=== PATIENT | male | born 1985 | race Caucasian/White ===

== ENCOUNTER 2017-01-20 03:11 | Emergency (ER) | payer SELFPAY ==
[~2017-01-20] VITALS: Ht 170.2 cm; Wt 65.0 kg
[~2017-01-20 03:11] MED LIST: BACTRIM DS1 TAB PO; CEPHALEXIN500 MG PO; KEFLEX500 MG PO; NAPROSYN500 MG PO; ULTRAM50 M1 PO; ZOFRAN ODT4 MG OR
[2017-01-20 03:59] LABS: ALBUMIN 4.5 g/dL (3.2-5.0); ALKALINE PHOSPHATASE 73 u/l (38-126); ANION GAP 18 (6-22 (CALC)); BILIRUBIN, TOTAL 1.4 mg/dL (0.0-1.4); BUN 17 mg/dL (9-20); BUN/CREATININE RATIO 19 (12-20 (CALC)); CALCIUM 8.8 mg/dL (8.4-10.2); CARBON DIOXIDE 24 mmol/l (22-30); CHLORIDE 103 mmol/l (95-108); CREATININE 0.9 mg/dL (0.7-1.3); GFR > 60 ML/MIN (>=60 (CALC)); GFR FOR AFR.AMER. > 60 ML/MIN (>=60 (CALC)); GLUCOSE 96 mg/dL (75-110); POTASSIUM 3.3 mmol/l (3.5-5.1); SGOT/AST 25 u/l (17-59); SGPT/ALT 32 u/l (21-72); SODIUM 141 mmol/l (137-146); TOTAL PROTEIN 7.4 g/dL (6.3-8.2)
[2017-01-20 04:00] LABS: HEMATOCRIT 41.3 % (39.0-50.0); HEMOGLOBIN 14.4 g/dl (14.0-18.0); IMMATURE GRANULOCYTES 0.3 % (0.0-1.0); MEAN CELL VOLUME 87.3 fL CALC (80.0-100.0); MEAN CORPUSCULAR HGB 30.4 pG CALC (26.0-32.0); MEAN CORPUSCULAR HGB CONC 34.9 g/L CALC (32.0-36.0); NEUT# 8.21 thou/uL (1.82-7.42); RED BLOOD COUNT 4.73 mill/uL (4.70-6.10); RED CELL DISTRI WIDTH 12.1 % (11.5-15.5)
[2017-01-20] MEDS ORDERED: AMOXICILLIN500 MG PO (04:15)
[2017-01-20] MEDS ORDERED: NAPROSYN500 MG PO (04:15)
[2017-01-20 04:20] VITALS: BP 129/83
== END 2017-01-20 04:25 | DRG 159 ==
LOC: ED 03:11
PROVIDERS: Emergency Medicine
DX: K04.7 Periapical abscess without sinus (principal)

== ENCOUNTER 2019-12-25 17:45 | Inpatient (IN) | payer SELFPAY ==
[~2019-12-25] VITALS: Ht 167.6 cm; Wt 70.2 kg
[~2019-12-25 17:45] MED LIST changes: +AMOXICILLIN500 MG PO
--- NOTE | 2019-12-25 18:14 | NUR ---
PATIENT AMBULATED TO ROOM WITH STEADY GAIT AND PRACTIONER AT BEDSIDE FOR EVAL
[2019-12-25 18:44] LABS: HEMOGLOBIN 16.1 g/dl (14.0-18.0); MEAN CELL VOLUME 84.3 fL CALC (80.0-100.0); MEAN CORPUSCULAR HGB 28.1 pG CALC (26.0-32.0); MEAN CORPUSCULAR HGB CONC 33.3 g/dL CAL (32.0-36.0); PLATELET COUNT 292 thou/uL (130-400); RED BLOOD COUNT 5.73 mill/uL (4.70-6.10); RED CELL DISTRI WIDTH 13.5 % (11.5-15.5)
[2019-12-25 19:01] LABS: HEMATOCRIT 48.3 % (39.0-50.0); MANUAL DIFFERENTIAL YES
[2019-12-25 19:02] LABS: ALBUMIN 4.4 g/dL (3.2-5.0); BILIRUBIN, TOTAL 1.4 mg/dL (0.0-1.4); BUN 12 mg/dL (9-20); BUN/CREATININE RATIO 13 (12-20 (CALC)); CARBON DIOXIDE 28 mmol/l (22-30); GFR > 60 ML/MIN (>=60 (CALC)); GFR FOR AFR.AMER. > 60 ML/MIN (>=60 (CALC)); SGOT/AST 19 u/l (17-59); TOTAL PROTEIN 7.5 g/dL (6.3-8.2)
[2019-12-25 19:04] LABS: BAND 9 % (0-8)
[2019-12-25 19:10] LABS: ALKALINE PHOSPHATASE 116 u/l (38-126); ANION GAP 15 (6-22 (CALC)); CHLORIDE 88 mmol/l (95-108); POTASSIUM 4.2 mmol/l (3.5-5.1); SODIUM 127 mmol/l (137-146)
--- NOTE | 2019-12-25 19:30 | NUR ---
PT IS C/O BEING COLD. TEMP 100.6. SUPERINTENDENT [employer]ATING [employer] NOTIFIED.
[2019-12-25 19:52] LABS: URINE BILIRUBIN - DIPSTICK NEGATIVE (NEGATIVE); URINE BLOOD DIPSTICK TRACE-INTACT (NEGATIVE); URINE COLOR YELLOW; URINE GLUCOSE - DIPSTICK NEGATIVE (NEGATIVE); URINE KETONE NEGATIVE (NEGATIVE); URINE LEUK ESTERASE NEGATIVE (NEGATIVE); URINE NITRITE - DIPSTICK NEGATIVE (Negative); URINE PROTEIN - DIPSTICK NEGATIVE (NEG-TRACE)
--- NOTE | 2019-12-25 21:53 | NUR ---
REPORT CALLED TO [facility].
--- NOTE | 2019-12-25 22:00 | NUR ---
MICHELLE COMPLETED. PT TO FLOOR VIA STRETCHER. NAD. ABMULATORY TO BED. ADVISED VISITOR OF NO VISITORS IN HOUSE DO TO COVID. PT AMBULATORY TO BED UPON ARRIVAL.
[2019-12-25 22:05] VITALS: BP 114/79
--- NOTE | 2019-12-25 22:05 | NUR ---
RECEIVED REPORT FROM NURSE MOREIRA, PATIENT TRANSPORTED VIA BED, AMBULATED WITH STEADY GAIT BUT SLOW R/T PAIN ON AXILLA, ORIENTED TO ROOM AND CALL LIGHT SYSTEM.
--- NOTE | 2019-12-25 22:30 | NUR ---
ADMISSION ASSEST DONE, PATIENT HAS AN ONGOING IV NS @ 100CC/HR INFUSING WELL ON RAC, LBM 12/23, LEFT AXILLA APPEARS SWOLLEN AND RED, INTACT SKIN, CALL LIGHT AT REACH.
--- NOTE | 2019-12-26 02:31 | NUR ---
PATIENT RESTING IN BED EYES CLOSED, IV INFUSING WELL ON RAC, BREATHING EVEN AND UNLABORED CALL LIGHT AT REACH.
[2019-12-26 04:00] VITALS: BP 107/72
--- NOTE | 2019-12-26 04:53 | NUR ---
PATIENT RESTING IN BED WITH EYES CLOSED, BREATHING EVEN AND UNLABORED, CALL LIGHT AT REACH.
--- NOTE | 2019-12-26 07:27 | NUR ---
CALLED OR TO LEAVE A MESSAGE FOR DR TRIANA ABOUT CONSULT
--- NOTE | 2019-12-26 08:40 | NUR ---
ASSESSMENT IS COMPLTED: IV SITE IS FREE FROM REDNESS OR EDEMA. HR IS REG,PULSES ARE STRONG X4, ABD IS SOFT WITH ACTIVE BS. BREATH SOUNDS ARE CLEAR,BILATERALLY, LEFT AXILLA HAS SMALL DRAINAGE NOTED. CONTINUE TO OSBERVE AND MONITOR.
--- NOTE | 2019-12-26 11:30 | NUR ---
WARM COMPRESS GIVEN TO PT TO PLACE UNDER THE LEFT ARM.
--- NOTE | 2019-12-26 12:50 | NUR ---
PT IS RELAXING IN BED WITH NO DISTRESS NOTED. IV SITE IS FREE FROM REDNESS OR EDEMA.
--- NOTE | 2019-12-26 13:03 | NUR ---
S: DAMARI SAMSON is a 34 M who presents with cellulitis. He has a history of polysubstance abuse. All medications in patient's chart were reviewed. O: VS: BP 107/72 mmHg, P 88 bpm, RR 16 breaths/min, T 97.7 F W 70.193 kg, HT 167.64 cm, Scr= 1 mg/dL, CrCl= 103.4 ml/min A: Blood culture is pending. Wound culture is pending. P: Patient is on zosyn 3.375gm IV Q6H. Vancomycin ordered for pharmacy to dose. Start Vancomycin 1250mg IV Q12H. Vancomycin trough is drawn before the 4th dose on 12/27/2019 2130. Vancomycin goal trough is between 10-15 mcg/ml. Pharmacy will follow and or advise on antibiotics use as needed.
[2019-12-26 15:00] VITALS: BP 109/64
--- NOTE | 2019-12-26 16:50 | NUR ---
PT IS RELAXING IN BED AND NO DISTRESS NOTED. IV SITE IS FREE FROM REDNESS OR EDEMA.
--- NOTE | 2019-12-26 18:20 | NUR ---
PT TOOK A SHOWER. AND THEN GAVE PAIN MEDICATION.
--- NOTE | 2019-12-26 19:00 | NUR ---
RECEIVED REPORT FROM NURSE BARBOSA PATIENT AWAKE AT THIS TIME, WATCHING TV, C/O PAIN ON LEFT AXILLA BUT REFUSED TO TAKE PAIN MEDICATION YET AT THIS TIME, WARM COMPRESS APPLIED TO SITE PER ORDER.
[2019-12-26 19:45] VITALS: BP 99/63
--- NOTE | 2019-12-26 21:00 | NUR ---
PATIENT ALERT ORINETED ABLE TO MAKE NEEDS KNOWN, LBM 12/25, CONSENT FOR OR SECURED, ONGOING IV NORMAL SALINE @ 100CC/HR INFUSING WELL ON RAC, MAINTAINED ON CONTACT PRECAUTION FOR MRSA, REINFORCED NPO DIET AFTER MIDNIGHT.
[2019-12-27] VITALS (11 sets, daily range): BP systolic 95–118; BP diastolic 64–76
--- NOTE | 2019-12-27 00:56 | NUR ---
PATIENT RESTING IN BED REINFORCED ON NPO DIET VERBALIZED UNDERSTANDING, RESPIRATION EVEN AND UNLABORED CALL LIGHT AT REACH.
--- NOTE | 2019-12-27 04:58 | NUR ---
PATIENT REMAIMS ON NPO, RESTING IN BED WITH EYES CLOSE, RESPIRATION UNLABORED CALL LIGHT AT REACH.
--- NOTE | 2019-12-27 05:52 | NUR ---
AT 0449 PATIENT C/O OF SHARP CHEST PAIN, PS 9/10, V/S TAKEN TEMP 97.7 P 75 R 18 BP 114/67, STAT EKG ORDERED, AT [address] ROCHA AND MADE AWARE OF CONDITION WITH ORDERS MADE, FAX TO PHARMACY.
--- NOTE | 2019-12-27 07:15 | NUR ---
REPORT RECEIVED FROM TEA ARRIAZA;PT BEING TRANSPORT TO OR AT THIS TIME IN STABLE CONDITION VIA STRETCHER ACCOMPANIED BY TEA TRENT.
--- NOTE | 2019-12-27 07:20 | NUR ---
PATIENT FOR OR PICKED UP BY OR TEAM TRANSPORTED VIA BED, CONSENT FOR PROCEDURE AND PAPER WORK SENT.
[2019-12-27 09:08] LABS: MEAN CELL VOLUME 88.3 fL CALC (80.0-100.0); MEAN CORPUSCULAR HGB 28.2 pG CALC (26.0-32.0); MEAN CORPUSCULAR HGB CONC 31.9 g/dL CAL (32.0-36.0); RED BLOOD COUNT 4.01 mill/uL (4.70-6.10); RED CELL DISTRI WIDTH 13.9 % (11.5-15.5)
[2019-12-27 09:15] LABS: HEMATOCRIT 35.4 % (39.0-50.0); HEMOGLOBIN 11.3 g/dl (14.0-18.0)
--- NOTE | 2019-12-27 09:25 | NUR ---
PT ARRIVED BACK TO MED/SURG ROOM 278 IN STABLE CONDITION VIA STRETCHER ACCOMPANIED BY TEA BEAVERS;PT ASSISTED TO BED SIDE WITH X1 PERSON ASSIST;PT A&O X3, RE-ORIENTED TO CALL LIGHT SYSTEM;BEDSIDE REPORT RECEIVED;VS OBTAINED BY LEON STEPHENS;PT POST OP I&D TO LEFT AXILLARY,DRESSING CDI;RESPIRATIONS EVEN AND UNLABORED ON RA,CLEAR LUNG SOUNDS;ABDOMEN SOFT ON PALPATION AND ACTIVE IN ALL 4 QUADRANTS;STRONG PEDAL PULSES;#22G TO RFA INFUSING NS @ 100ML/HR PER ORDER,SITE APPEARS HEALTHY;PT DENIES ANY CURRENT PAIN OR NEEDS,ENCOURAGED TO CALL FOR ASSISTANCE IF NEEDED;FALL PRECAUTIONS IN PLACE WITH BED IN THE LOWEST POSITION AND CALL LIGHT IN REACH;WILL CONTINUE TO MONITOR
[2019-12-27 09:40] LABS: ALKALINE PHOSPHATASE 96 u/l (38-126); BUN 12 mg/dL (9-20); BUN/CREATININE RATIO 15 (12-20 (CALC)); CARBON DIOXIDE 27 mmol/l (22-30); CREATININE 0.8 mg/dL (0.7-1.3); GFR > 60 ML/MIN (>=60 (CALC)); GFR FOR AFR.AMER. > 60 ML/MIN (>=60 (CALC)); POTASSIUM 4.2 mmol/l (3.5-5.1); SODIUM 132 mmol/l (137-146)
[2019-12-27 09:41] LABS: ALBUMIN 2.9 g/dL (3.2-5.0); ANION GAP 7 (6-22 (CALC)); BILIRUBIN, TOTAL 0.4 mg/dL (0.0-1.4); CHLORIDE 102 mmol/l (95-108); SGOT/AST 34 u/l (17-59); TOTAL PROTEIN 5.2 g/dL (6.3-8.2)
--- NOTE | 2019-12-27 12:15 | NUR ---
PT RESTING IN SEMI FOWLERS POSITION;RESPIRATIONS EVEN AND UNLABORED ON RA;PT DENIES ANY CURRENT PAIN OR NEEDS;IV FLUIDS INFUSING WITH EASE AND ABX STARTED AT THIS TIME;DRESSING REMAINS CDI TO LEFT AXILLARY;PT DENIES ANY ADDITIONAL NEEDS AND IS ENCOURAGED TO CALL FOR ASSISTANCE IF NEEDED;CALL LIGHT IN REACH;WILL CONTINUE TO MONITOR
--- NOTE | 2019-12-27 15:35 | NUR ---
PT APPEARS TO BE SLEEPING IN SEMI FOWLERS POSITION;RESPIRATIONS EVEN AND UNLABORED ON RA;NO S/S OF DISTRESS NOTED;IV FLUIDS INFUSING WITH EASE PER ORDER;ASSESSMENT REMAINS UNCHANGED AT THIS TIME;ALL SAFETY PRECAUTIONS IN PLACE WITH BED IN THE LOWEST POSITION AND CALL LIGHT IN REACH;WILL CONTINUE TO MONITOR
--- NOTE | 2019-12-27 21:25 | NUR ---
PT RESTING IN BED, ALERT AND ORIENTED. RESPIRATIONS EVEN AND UNLABORED ON RA. LUNGS SOUND CLEAR. PEDAL PULSES STRONG. PT REPORTS HAVING MILD PAIN IN LEFT ARM, TO BE MEDICATED PER EMAR ORDERS. SAFETY PRECAUTIONS IN PLACE. WILL CONTINUE TO MONITOR.
[2019-12-28] VITALS: BP 117/66
--- NOTE | 2019-12-28 00:10 | NUR ---
PT RESTING IN BED. NO S/S OF DISTRESS AT THIS TIME. SAFETY PRECAUTIONS IN PLAC.E WILL CONTINUE TO MONITOR.
--- NOTE | 2019-12-28 04:20 | NUR ---
PT RESTING IN BED, NO S/S OF DISTRESS AT THIS TIME.
[2019-12-28 04:59] LABS: HEMATOCRIT 34.7 % (39.0-50.0); HEMOGLOBIN 11.1 g/dl (14.0-18.0); MEAN CELL VOLUME 88.1 fL CALC (80.0-100.0); MEAN CORPUSCULAR HGB 28.2 pG CALC (26.0-32.0); RED BLOOD COUNT 3.94 mill/uL (4.70-6.10); RED CELL DISTRI WIDTH 13.9 % (11.5-15.5)
[2019-12-28 05:00] VITALS: BP 122/67
[2019-12-28 05:30] LABS: ALBUMIN 2.9 g/dL (3.2-5.0); ALKALINE PHOSPHATASE 142 u/l (38-126); ANION GAP 10 (6-22 (CALC)); BUN 15 mg/dL (9-20); BUN/CREATININE RATIO 22 (12-20 (CALC)); CARBON DIOXIDE 27 mmol/l (22-30); CHLORIDE 103 mmol/l (95-108); CREATININE 0.7 mg/dL (0.7-1.3); GFR > 60 ML/MIN (>=60 (CALC)); GFR FOR AFR.AMER. > 60 ML/MIN (>=60 (CALC)); POTASSIUM 4.6 mmol/l (3.5-5.1); SODIUM 136 mmol/l (137-146); TOTAL PROTEIN 5.4 g/dL (6.3-8.2)
[2019-12-28 05:40] LABS: BILIRUBIN, TOTAL 0.2 mg/dL (0.0-1.4); SGOT/AST 121 u/l (17-59)
[2019-12-28 08:00] VITALS: BP 108/74
--- NOTE | 2019-12-28 12:27 | NUR ---
S: DAMARI SAMSON is a 34 M who presents with cellulitis. He has a history of polysubstance abuse. All medications in patient's chart were reviewed. O: VS: BP 108/74 mmHg, P 76 bpm, RR 16 breaths/min, T 97 F W 70.2 kg, HT 167.6 cm, Scr= 0.7 mg/dL, CrCl= 147.6 ml/min A: Blood culture is pending. Wound culture shows MRSA which is sensitive to vancomycin. P: Vancomycin ordered for pharmacy to dose. Vancomycin trough level is 6 on 12/27/19 at 2130. Patient was on vancomycin 1250 mg IV Q12H. Change to Vancomycin 1000 mg IV Q8H. Vancomycin trough is drawn before the 4th dose on 12/28 at 1730. Vancomycin goal trough is between 10-15 mcg/ml. Pharmacy will follow and or advise on antibiotics use as needed.
[2019-12-28 15:24] VITALS: BP 111/66
--- NOTE | 2019-12-28 15:56 | NUR ---
Called pharmacy to verify the increase in frequency, he stated because of the level low.
[2019-12-28 18:35] VITALS: BP 125/71
--- NOTE | 2019-12-28 21:42 | NUR ---
PT RESTING IN BED, ALERT AND ORIENTED. RESPIRATIONS EVEN AND UNLABORED ON RA. LUNGS SOUND CLEAR. PEDAL PULSES ARE WEAK. DRESSING TO LEFT AXILLARY COMING OUT AND DRAINING ONTO GOWN. DRESSING REMOVED AND NEW DRESSING APPLIED, PT TOLERATED WELL. GOWN CHANGED. SAFETY PRECAUTIONS IN PLACE. WILL CONTINUE TO MONITOR.
--- NOTE | 2019-12-29 00:19 | NUR ---
PT RESTING IN BED, NO S/S OF DISTRESS AT THIS TIME. SAFETY PRECAUTIONS IN PLACE. WILL CONTINUE TO MONITOR.
--- NOTE | 2019-12-29 01:50 | NUR ---
PT SEEMS AGITATED, PT IS REFUSING TO BE STUCK FOR AN IV AFTER 3 ATTEMPTS MADE, BY DIFFERENT NURSES. PT CURRENTLY HAS NO IV ACCESS. PT STATES "I'M NOT REFUSING TO HAVE AN IV STARTED, I'M REFUSING TO BE STUCK A MILLION TIMES! I'LL LET SOMEONE START AN IV WHEN THEY KNOW WHAT THEU'RE DOING". TO BE NOTIFIED. SAFETY PRECAUTIONS IN PLACE. WILL CONTINUE TO MONITOR.
--- NOTE | 2019-12-29 01:53 | NUR ---
PT WITHOUT IV ACCESS, 0200 VANCO DUE. PT REFUSES ATTEMPTS TO ANTECUBITAL VEINS. LINEAR HARDENED SCAR TISSUE NOTED TO FOREARMS. ATTEMPTED 20G IV TO R FOREARM. 1ST ATTEMT UNSUCESSFUL. PT STATES "YA'LL ARE NOT GOING TO JUST BE POKING ME AND DIGGING AROUND CAUSE ITS STARTING TO PISS ME OFF. GET SOMEONE WHO KNOWS WHAT THEY'RE DOING". PRIMARY RN Klarissa FERNÁNDEZ INFORMED OF PTS REFUSAL OF FURTHER ATTEMPTS FROM THIS NURSE.
--- NOTE | 2019-12-29 04:26 | NUR ---
PT RESTING IN BED, NO S/S OF DISTRESS AT THIS TIME. SAFETY PRECAUTIONS IN PLACE. WILL CONTINUE TO MONITOR.
[2019-12-29 04:41] VITALS: BP 107/73
[2019-12-29 05:43] LABS: HEMATOCRIT 33.3 % (39.0-50.0); HEMOGLOBIN 10.4 g/dl (14.0-18.0); IMMATURE GRANULOCYTES 1.3 % (0.0-5.0); MEAN CELL VOLUME 90.2 fL CALC (80.0-100.0); MEAN CORPUSCULAR HGB 28.2 pG CALC (26.0-32.0); MEAN CORPUSCULAR HGB CONC 31.2 g/dL CAL (32.0-36.0); NEUT# 9.29 thou/uL (1.82-7.42); RED BLOOD COUNT 3.69 mill/uL (4.70-6.10); RED CELL DISTRI WIDTH 14.2 % (11.5-15.5)
[2019-12-29 05:55] LABS: ANION GAP 10 (6-22 (CALC)); BUN 16 mg/dL (9-20); BUN/CREATININE RATIO 21 (12-20 (CALC)); CARBON DIOXIDE 28 mmol/l (22-30); CHLORIDE 103 mmol/l (95-108); CREATININE 0.7 mg/dL (0.7-1.3); GFR > 60 ML/MIN (>=60 (CALC)); GFR FOR AFR.AMER. > 60 ML/MIN (>=60 (CALC)); POTASSIUM 4.1 mmol/l (3.5-5.1); SODIUM 136 mmol/l (137-146)
--- NOTE | 2019-12-29 08:00 | NUR ---
REPORT RECEIVED FROM TEA HDZ. PT SUPINE IN BED. DENIES PAIN. REPORTING OF CONCERNS ENCOURAGED. PLAN OF CARE DISCUSSED. NO IVS, PT REFUSING AT THIS TIME. PT ANTICIPATES DISCHARGE HOME TODAY. DISCHARGE PROCESS REVIEWED. CALL LIGHT REVIEWED AND IN REACH. PT STATES UNDERSTANDING OF INFORMATION.
[2019-12-29 08:38] VITALS: BP 126/77
--- NOTE | 2019-12-29 08:45 | NUR ---
DR. ROCHA AND SABIHA REBOLLEDO IN TO SEE PT AT THIS TIME. DISCHARGE HOME DISCUSSED AND AGREED UPON. PUBLIC RELATIONS TO PROVIDE I.S. AND DRESSING CHANGE DEMONSTRATION PRIOR TO DISCHARGE.
[2019-12-29] MEDS ORDERED: AMOX/K CLAV875 M1 PO (10:22)
--- NOTE | 2019-12-29 11:15 | NUR ---
DISCHARGE INSTRUCTIONS REVIEWED WITH PT. AUGMENTIN PRESCRIPTION DELIVERED VIA [employer] AND GIVEN TO PT. LEFT AXILLA DRESSING CHANGED, PT. INSTRUCTED ON DRESSING TECHNIQUE, PT STATES UNDERSTANDING. I.S. PROVIDED TO PT. PER DR. ROCHA. 2,000 ML INCENTIVE VOLUME ACHIEVED, GOAL OF 2,500 ML SET.
--- NOTE | 2019-12-29 12:00 | NUR ---
PT AWAITING RIDE HOME FROM FRIEND FOR DISCHARGE.
--- NOTE | 2019-12-29 16:44 | NUR ---
PT STILL AWAITING RIDE HOME FOR DISCHARGE.
--- NOTE | 2019-12-29 17:27 | NUR ---
Discharge instructions given. Patient verbalizes understanding of same. Discharged in stable condition via Wheelchair to Home with friend. All belongings sent with pt.
== END 2019-12-29 17:25 | disposition home or self-care (01) | DRG 872 ==
LOC: ED 17:45 → ED-I 21:16 → ED 21:27 → MS2 21:28
PROVIDERS: Nurse Practitioner Family; ADMIT Internal Medicine; ATTEND Internal Medicine
PROC: 0X950ZZ Drainage of Left Axilla, Open Approach (ICD-10-PCS; principal; 2019-12-27)
DX: A41.9 Sepsis, unspecified organism (principal); L02.412 Cutaneous abscess of left axilla; L03.112 Cellulitis of left axilla; E87.1 Hypo-osmolality and hyponatremia; J98.11 Atelectasis; F15.10 Other stimulant abuse, uncomplicated; F17.200 Nicotine dependence, unspecified, uncomplicated; B95.62 Methicillin resistant Staphylococcus aureus infection as the cause of diseases classified elsewhere; Z20.828 Contact with and (suspected) exposure to other viral communicable diseases
CPT/HCPCS: J0131; J1100; J3370; Q9967

== ENCOUNTER 2022-03-31 18:52 | Emergency (ER) | payer SELFPAY ==
[~2022-03-31 18:52] MED LIST changes: +AMOX/K CLAV875 M1 PO
== END 2022-03-31 19:56 | disposition left against medical advice (07) | DRG 951 ==
LOC: ED 18:52 → LWOBS 19:56
DX: Z53.21 Procedure and treatment not carried out due to patient leaving prior to being seen by health care provider (principal)

== ENCOUNTER 2022-09-25 03:00 | Emergency (ER) | payer OTHER ==
[~2022-09-25] VITALS: Ht 167.6 cm; Wt 70.4 kg
[2022-09-25 03:10] VITALS: BP 133/92
[2022-09-25 03:31] VITALS: BP 133/83
[2022-09-25 03:58] LABS: BASO% 0.3 % (0-3); EOS% 1.3 % (0-8); HEMATOCRIT 38.2 % (39.0-50.0); IMMATURE GRANULOCYTES 0.2 % (0.0-5.0); LYMPH% 8.7 % (15-41); MEAN CORPUSCULAR HGB 28.5 pG CALC (26.0-32.0); MEAN CORPUSCULAR HGB CONC 32.7 g/dL CAL (32.0-36.0); MONO% 8.7 % (2-13); NEUT# 11.66 thou/uL (1.82-7.42); NEUT% 80.8 % (42-76); RED BLOOD COUNT 4.39 mill/uL (4.70-6.10); RED CELL DISTRI WIDTH 12.3 % (11.5-15.5)
[2022-09-25 04:02] LABS: HEMOGLOBIN 12.5 g/dl (14.0-18.0)
[2022-09-25 04:13] LABS: ALKALINE PHOSPHATASE 104 u/l (38-126); ANION GAP 13 (6-22 (CALC)); BUN 13 mg/dL (9-20); BUN/CREATININE RATIO 13 (12-20 (CALC)); CARBON DIOXIDE 25 mmol/l (22-30); CHLORIDE 102 mmol/l (95-108); GFR FOR AFR.AMER. > 60 ML/MIN (>=60 (CALC)); GFR OTHER RACES > 60 ML/MIN (>=60 (CALC)); POTASSIUM 3.7 mmol/l (3.5-5.1); SGOT/AST 44 u/l (17-59); SODIUM 136 mmol/l (137-146)
[2022-09-25 04:21] LABS: ALBUMIN 3.9 g/dL (3.2-5.0); BILIRUBIN, TOTAL 0.4 mg/dL (0.2-1.3); TOTAL PROTEIN 7.2 g/dL (6.3-8.2)
[2022-09-25] MEDS ORDERED: ZITHROMAX250 MG PO (04:40)
[2022-09-25 04:50] VITALS: BP 125/79
== END 2022-09-25 06:00 | disposition home or self-care (01) | DRG 195 ==
LOC: ED 03:00
PROVIDERS: Emergency Medicine
DX: J18.9 Pneumonia, unspecified organism (principal); F17.200 Nicotine dependence, unspecified, uncomplicated; Z20.822 Contact with and (suspected) exposure to COVID-19